=== PATIENT | male | born 1960 | race Caucasian/White ===

== ENCOUNTER 2018-01-02 19:21 | Emergency (ER) | payer OTHER ==
[~2018-01-02] VITALS: Ht 162.6 cm; Wt 64.1 kg
[~2018-01-02 19:21] MED LIST: IBUP-103 PO
[2018-01-02 19:28] VITALS: Ht 162.6 cm; Wt 64.1 kg
[2018-01-02] MEDS ORDERED: HYDROmorphone INJ 1 MG/ML SYR IV STA (19:37)
[2018-01-02] MEDS ORDERED: ONDANSETRON INJ 2 MG/ML 2 ML VIAL IV STA (19:37)
[2018-01-02] MEDS ORDERED: SODIUM CHLORIDE 0.9% 1000ML 1,000 ML IV STA (19:38)
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
[2018-01-02] MEDS ORDERED: KETAMINE HCL INJ 50 MG/ML 10 ML VIAL IV STA (20:09)
[2018-01-02] MEDS ORDERED: PROPOFOL IV EMULSION 10 MG/ML 20 ML VIAL IV STA (20:09)
[2018-01-02] MEDS ORDERED: METOCLOPRAMIDE HCL INJ 5 MG/ML 2 ML VIAL IV STA (20:16)
--- NOTE | 2018-01-02 20:33 | DIAGNOSTIC IMAGING REPORT ---
L FOREARM 2 VIEWS ROUTINE CLINICAL HISTORY: Left forearm pain status post trauma COMPARISON: None DISCUSSION: There are postsurgical changes involve the distal radius. There is an old ununited ulnar styloid fracture. There is a comminuted fracture the proximal ulna with 48 degrees of angulation. There is a radial head dislocation. IMPRESSION: 1. Acute Comminuted angulated fracture of the proximal ulna 2. Radial head dislocation 3. Old posttraumatic and postsurgical changes involve the distal radius Electronically signed by: Shola Bullock M.D. 01/02/2018 8:32 PM Dictated Date/Time: 01/02/2018 8:30 PM
--- NOTE | 2018-01-02 20:35 | DIAGNOSTIC IMAGING REPORT ---
L HUMERUS MIN 2 VIEWS ROUTINE CLINICAL HISTORY: Left humeral pain status post trauma COMPARISON: None. DISCUSSION: No fractures or dislocations of the humerus are visualized. There is a comminuted angulated fracture of the proximal ulna. There is a radial head dislocation. IMPRESSION: 1. No acute fractures or dislocations of the humerus 2. Comminuted angulated fracture the proximal ulna 3. Radial head dislocation Electronically signed by: Shola Bullock M.D. 01/02/2018 8:34 PM Dictated Date/Time: 01/02/2018 8:32 PM
--- NOTE | 2018-01-02 20:36 | DIAGNOSTIC IMAGING REPORT ---
CHEST ONE VIEW PORTABLE CLINICAL HISTORY: Trauma. Fracture. COMPARISON STUDY: No previous studies for comparison. FINDINGS: The heart is mildly enlarged. There is aortic tortuosity/ectasia. There is no failure. There is no focal pulmonary consolidation. There are minor left basilar atelectatic changes. There is no pneumothorax.[ IMPRESSION: Mild cardiomegaly. No acute findings. Electronically signed by: Shola Bullock M.D. 01/02/2018 8:35 PM Dictated Date/Time: 01/02/2018 8:34 PM
--- NOTE | 2018-01-02 21:11 | DIAGNOSTIC IMAGING REPORT ---
FLUOROSCOPIC VIEWS OF THE LEFT FOREARM (4 VIEWS) CLINICAL HISTORY: LT FOREARM FX COMPARISON STUDY: Earlier in the day FLUOROSCOPY TIME: 27 seconds. NUMBER OF FLUOROSCOPIC IMAGES: 4 FINDINGS: Now evident is a radial head fracture. There is been interval reduction of the radial head subluxation. There is a comminuted fracture the proximal ulna. IMPRESSION: 1. Comminuted fracture of the proximal ulna 2. Interval reduction of the radial head subluxation. 3. Radial head fracture Electronically signed by: Shola Bullock M.D. 01/02/2018 9:10 PM Dictated Date/Time: 01/02/2018 9:09 PM
--- NOTE | 2018-01-02 21:21 | DIAGNOSTIC IMAGING REPORT ---
L FOREARM 2 VIEWS ROUTINE CLINICAL HISTORY: Fracture status post reduction COMPARISON: Earlier in the day DISCUSSION: There is been interval reduction of previously identified radial head dislocation. There is a subtle radial head fracture. There is a comminuted fracture the proximal ulna. There are postsurgical changes involve the distal radius. There is been application of a plaster splint. IMPRESSION: 1. Interval reduction of the previously identified radial head subluxation 2. Radial head fracture 3. Improved alignment of the comminuted proximal ulnar fracture. Electronically signed by: Shola Bullock M.D. 01/02/2018 9:19 PM Dictated Date/Time: 01/02/2018 9:18 PM
--- NOTE | 2018-01-02 21:45 | DIAGNOSTIC IMAGING REPORT ---
CT LEFT ELBOW NO CONTRAST CT DOSE: 357.18 mGy.cm CLINICAL HISTORY: Left elbow fracture. TECHNIQUE: Helical images were acquired in the transverse plane. Sagittal and coronal reformatted images were acquired A dose lowering technique was utilized adhering to the principles of ALARA. COMPARISON STUDY: Image radiographic study performed the same day FINDINGS: There is a comminuted fracture of the proximal ulna with 5 mm of maximal distraction. There is no definite intra-articular extension. There is a nondisplaced radial head fracture. There is no radial head dislocation. IMPRESSION: 1. Comminuted proximal ulnar fracture with 5 mm of maximal distraction 2. Nondisplaced radial head fracture 3. No evidence of dislocation Electronically signed by: Shola Bullock M.D. 01/02/2018 9:44 PM Dictated Date/Time: 01/02/2018 9:40 PM
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
[2018-01-02] MEDS ORDERED: KETOROLAC TROMETHAMINE 30 MG/ML VIAL IV STA (22:03)
[2018-01-02] MEDS ORDERED: OXYC-57 PO (22:09)
[2018-01-02] MEDS ORDERED: PERCOCET HOME PACK PO ONE (22:15)
--- NOTE | 2018-01-02 22:18 | Pre Sedation Assessment ---
Pre Sedation Assessment General Date of Sedation: Jan 02, 2018. Vital Signs Past 12 Hours Date Time Temp Pulse Resp B/P (MAP) Pulse Ox O2 Delivery O2 Flow Rate FiO2 01/02/18 22:12 95 20 140/82 95 Room Air 01/02/18 21:38 134/98 01/02/18 21:26 20 01/02/18 21:21 140/90 01/02/18 21:16 136/84 01/02/18 21:11 95 18 131/86 96 Room Air 01/02/18 21:06 115/84 01/02/18 21:01 154/92 01/02/18 20:56 149/93 01/02/18 20:55 88 12 100 Room Air 01/02/18 20:51 161/96 98 Nasal Cannula 2.0 01/02/18 20:46 168/97 98 Nasal Cannula 2.0 01/02/18 20:41 20 164/102 99 Nasal Cannula 2.0 01/02/18 20:37 20 157/104 99 Nasal Cannula 2.0 01/02/18 20:31 18 168/106 98 Nasal Cannula 2.0 01/02/18 20:29 95 01/02/18 20:26 176/113 01/02/18 20:25 95 98 Room Air 01/02/18 19:28 36.2 90 18 99 Room Air Review Cardiovascular: regular rate, rhythm, no edema, no gallop, no JVD, no murmur, normal peripheral pulses Lungs: chest non-tender, lungs clear, normal breath sounds, no respiratory distress, no accessory muscle use Pre-Sedation Airway Assessment Smoking Status: Never Smoker Short Thick Neck: No Thyro-mental Distance: > 3 Finger Breadths Oral Cavity: WNL Mallampati Classification: Class I ASA Classification: Class I NPO Status Date of Last Intake of Fluids: Jan 02, 2018 Time of Last Intake of Fluids: 1600 Date of Last Intake of Solids: Jan 02, 2018 Time of Last Intake of Solids: 1600 Procedure Planning Contraindications for Sedation: None Current Medications Reviewed: Yes Notes The planned sedation has been discussed with the patient. Informed Consent was obtained. I have identified the patient, determined the appropriateness of sedation and have assessed the patient immediately prior to the procedure. All medicine(s) and interventions are by my order.
--- NOTE | 2018-01-02 22:19 | Post Sedation Assessment ---
Post Sedation Assessment General Date of Sedation Jan 02, 2018. Vital Signs: Vital Signs Past 12 Hours Date Time Temp Pulse Resp B/P (MAP) Pulse Ox O2 Delivery O2 Flow Rate FiO2 01/02/18 22:12 95 20 140/82 95 Room Air 01/02/18 21:38 134/98 01/02/18 21:26 20 01/02/18 21:21 140/90 01/02/18 21:16 136/84 01/02/18 21:11 95 18 131/86 96 Room Air 01/02/18 21:06 115/84 01/02/18 21:01 154/92 01/02/18 20:56 149/93 01/02/18 20:55 88 12 100 Room Air 01/02/18 20:51 161/96 98 Nasal Cannula 2.0 01/02/18 20:46 168/97 98 Nasal Cannula 2.0 01/02/18 20:41 20 164/102 99 Nasal Cannula 2.0 01/02/18 20:37 20 157/104 99 Nasal Cannula 2.0 01/02/18 20:31 18 168/106 98 Nasal Cannula 2.0 01/02/18 20:29 95 01/02/18 20:26 176/113 01/02/18 20:25 95 98 Room Air 01/02/18 19:28 36.2 90 18 99 Room Air Post Procedure Recovery Score Activity: (2) Moves 4 extremities * Respiration: (2) Deep breath/cough Circulation: (2) +/-20% PreAnes Value Consciousness: (2) Fully Awake Oxygen Saturation: (2) > 92% On Room Air Post Anesthesia Score: 10 Discharge Sedation Level of Care: Phase I Post Sedation Plan On clinical assessment, the patient appears to have tolerated the sedation without complications. Patient is recovering as anticipated. Patient will continue to be monitored by nursing and may be discharged when sedation discharge criteria are met per below protocol. Upon Completions of procedure and additional 15 minutes continue every 5 minute vital signs and the P.A.R. score; then discharge to a Phase I or Fast Track to Phase II per the following guidelines: * Discharge Patient to appropriate Phase II area if PAR is 8 or greater or return to pre- procedure baseline. The post - procedure orders will be as directed. * If PAR score is less than 8 or not return to pre-procedure baseline then patient will follow Phase I monitoring till PAR is reached for Phase II. The Phase I may be done in procedure room or may call to secure a Phase I area. * If naloxone or flumazenil are used for reversal, hold in Phase I for an additional 60 -120 minutes before discharge to Phase II. Please call the Sedation Physician to re-evaluate and complete post-note for discharge to Phase II area. Do NOT discharge from procedure sedation or Phase 1 until post- sedation evaluation note is complete by procedure /sedation MD Sedation Discharge Instructions to be given to the patient at discharge to home.
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
[2018-01-02 22:33] VITALS: BP 140/82; PULSE 95; TEMP 36.2; O2SAT 95
== END 2018-01-02 22:33 | disposition home or self-care (01) ==
LOC: C.EDB 19:22 → C.EDA 22:33
DX: S52.272A Monteggia's fracture of left ulna, initial encounter for closed fracture (principal); V18.0XXA Pedal cycle driver injured in noncollision transport accident in nontraffic accident, initial encounter; Y92.9 Unspecified place or not applicable